=== PATIENT | male | born 1970 | race Two or more races ===

== ENCOUNTER → 2018-08-09 | Outpatient (CLI) | payer OTHER ==
--- NOTE | 2018-08-09 09:33 | KCIC ---
EXAM: Abdomen sonogram. HISTORY: Left upper quadrant pain. TECHNIQUE: Sonographic imaging of the abdomen was performed. COMPARISON: None. FINDINGS: The liver is mildly enlarged. There is hepatic steatosis. The common bile duct is normal in caliber. The gallbladder is unremarkable. The kidneys are normal in size. There is no hydronephrosis or solid or cystic renal lesion. The pancreas is unremarkable. The spleen is upper normal in size. The aorta is normal in caliber. The inferior vena cava is patent. There is prominent bowel gas within the left upper quadrant. IMPRESSION: 1. Mild hepatic megaly and hepatic steatosis. 2. Prominent bowel gas within the left upper quadrant. 3. Otherwise, unremarkable abdomen sonogram. Electronically signed by: Kimberly Lomeli MD (08/09/2018 9:30 AM) [id number]
== END | disposition home or self-care (01) ==
LOC: KCIC US 07:53
DX: K76.0 Fatty (change of) liver, not elsewhere classified (principal); R16.0 Hepatomegaly, not elsewhere classified; R14.0 Abdominal distension (gaseous)
CPT/HCPCS: 76700